=== PATIENT | male | born 1970 | race Caucasian/White ===

== ENCOUNTER 2016-11-30 15:07 | Emergency (ER) | payer OTHER ==
[2016-11-30] MEDS ORDERED: NITROGLYCERIN OINT 1 INCH/GM PACKET TOPICAL STA (15:58)
[2016-11-30] MEDS ORDERED: ASPIRIN 81 MG CHEW PO STA (15:58)
--- NOTE | 2016-11-30 16:18 | XR ---
EXAMINATION TYPE: XR chest 2V DATE OF EXAM: 11/30/2016 COMPARISON: NONE HISTORY: Chest pain and tightness. TECHNIQUE: Frontal and lateral views of the chest are obtained. FINDINGS: There is no focal air space opacity, pleural effusion, or pneumothorax seen. The cardiac silhouette size is within normal limits. The osseous structures are intact. IMPRESSION: No acute cardiopulmonary process.
[2016-11-30 16:22] LABS: Basophils # (A) 0.1 k/uL (0-0.2); Basophils % (A) 1 %; CH 32.8; CHCM 33.5; Eosinophils # (A) 0.3 k/uL (0-0.7); Eosinophils % (A) 3 %; HDW 2.21; HGB 17.6 gm/dL (13.0-17.5); Luc # (Auto) 0.17; Luc % (Auto) 2; Lymphocytes # (A) 1.8 k/uL (1.0-4.8); Lymphocytes % (A) 20 %; MCH 32.6 pg (25.0-35.0); MCHC 33.2 g/dL (31.0-37.0); MCV 98.2 fL (80.0-100.0); Mean Platelet Volume 8.2; Monocytes # (A) 0.8 k/uL (0-1.0); Monocytes % (A) 9 %; Neutrophils # (A) 5.9 k/uL (1.3-7.7); Neutrophils % (A) 66 %; RDW 12.8 % (11.5-15.5); WBC (Perox) 8.51
[2016-11-30 16:26] LABS: INR 1.1 (<1.1); Partial Thromboplastin Time 25.2 sec (22.0-30.0); Prothrombin Time 10.9 sec (9.0-12.0)
[2016-11-30 16:27] LABS: ALT 32 U/L (21-72); AST 13 U/L (17-59); Alkaline Phosphatase 57 U/L (38-126); Anion Gap 7 mmol/L; Blood Urea Nitrogen 22 mg/dL (9-20); Calcium 9.1 mg/dL (8.4-10.2); Carbon Dioxide 26 mmol/L (22-30); Chloride 106 mmol/L (98-107); Glucose 86 mg/dL (74-99); Non-African American GFR(MDRD) >60 (>60 ml/min/1.73 sqM); Potassium 4.2 mmol/L (3.5-5.1); Sodium 139 mmol/L (137-145); Total Bilirubin 0.9 mg/dL (0.2-1.3); Total Protein 6.8 g/dL (6.3-8.2)
[2016-11-30 16:38] LABS: Creatine Kinase 156 U/L (55-170)
[2016-11-30 16:50] LABS: Troponin I <0.012 ng/mL (0.000-0.034)
--- NOTE | 2016-11-30 17:00 | ED ---
Chest Pain HPI - General Chief Complaint: Chest Pain Stated Complaint: chest tightness Time Seen by Provider: 11/30/16 15:52 Source: patient Mode of arrival: ambulatory Limitations: no limitations - History of Present Illness Initial Comments: This 46-year-old white male presents with a complaint of some left-sided chest pain which he describes as a tightness. It seems to radiate posteriorly at times. He states that he walked up 76 flights of steps on Tuesday, 3 days ago. He then did it again yesterday. The symptoms seemed to start shortly after doing this exertional activity. He states that he has gradually been increasing his workout and walking up the [employer]. He actually walked out of the flights of steps twice. He denies any shortness of breath, palpitations, or diaphoresis. He denies any known previous cardiac symptoms. He has had chest pain at times over the years and has been checked out and his last stress test was approximately 2 years ago and was negative. He denies any leg pain or swelling. He denies any history of DVT or PE. No other complaints or modifying factors. - Related Data Home Medications Medication Instructions Recorded Confirmed Atorvastatin Calcium [Lipitor] 10 mg PO DAILY 11/30/16 11/30/16 Cholecalciferol [Vitamin D3] 1,000 unit PO DAILY 11/30/16 11/30/16 Enalapril [Vasotec] 20 mg PO DAILY 11/30/16 11/30/16 Fluticasone Nasal [place] [Flonase 1 spr EA NOSTRIL DAILY 11/30/16 11/30/16 Nasal [place]] Tamsulosin HCl [Flomax] 0.4 mg PO DAILY 11/30/16 11/30/16 Allergies Allergy/AdvReac Type Severity Reaction Status Date / Time No Known Allergies Allergy Verified 11/30/16 16:04 Review of Systems ROS Statement: Those systems with pertinent positive or pertinent negative responses have been documented in the HPI. ROS Other: All systems not noted in ROS Statement are negative. Past Medical History Past Medical History: Hyperlipidemia, Hypertension History of Any Multi-Drug Resistant Organisms: None Reported Past Surgical History: Appendectomy Past Psychological History: No Psychological Hx Reported Smoking Status: Never smoker Past Alcohol Use History: Rare Past Drug Use History: None Reported General Exam - General Exam Comments Initial Comments: GENERAL: The patient is well nourished and well hydrated. VITAL SIGNS: Heart rate, blood pressure, respiratory rate reviewed as recorded in nurse's notes. EYES: Pupils are round and reactive. Extraocular movements are intact. No conjunctival / lid redness or swelling. ENT: No external evidence of injury, swelling, or ecchymosis. Airway is patent. Throat is clear. NECK: Nontender. No swelling or evidence of injury. No subcutaneous emphysema. Trachea is midline. No thyroid mass. HEART: Regular rate and rhythm. Good peripheral pulses. LUNGS/CHEST: Breath sounds clear and equal bilaterally. No rales, rhonchi, or wheezes. No ecchymosis, subcutaneous emphysema, or tenderness. ABDOMEN: Abdomen soft without tenderness. No palpable masses or organomegaly. No peritoneal signs. No abdominal wall swelling or ecchymosis. EXTREMITIES: No extremity tenderness. Normal muscle tone and function. No thoracolumbar tenderness. NEUROLOGIC: Sensation is grossly intact. Cranial nerve exam reveals face is symmetrical, tongue is midline, speech is clear. SKIN: No abrasions or ecchymosis is noted. No induration or masses noted. PSYCHIATRIC: Alert and oriented. Appropriate behavior and judgment. Limitations: no limitations Course Vital Signs 11/30/16 15:22 Temperature 97.8 F Pulse Rate 90 Respiratory 20 Rate Blood Pressure 159/92 O2 Sat by Pulse 99 Oximetry Chest Pain [facility] The patient was seen and examined. All diagnostics were reviewed. An IV is started and he receives aspirin as well as Nitropaste. The EKG shows a normal sinus rhythm at a rate of 95. There is no acute ST-T wave changes identified. The RI interval is 156, QRS duration is 78, and QTc interval is 427. The chest x-ray did not show any acute processes. The laboratory was all essentially within normal limits/unremarkable. He is feeling well on recheck. It is felt that he would benefit from admission to the hospital for further treatment. The patient adamantly refuses admission. Risks and benefits were discussed and ultimately detail and this does include the possibility of or debility. 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 He is instructed to take an aspirin daily and to avoid any strenuous activity or exercise until cleared by his tank assembler. He understands and leaves in no distress. Disposition Clinical Impression: Chest pain, Left against medical advice Disposition: Left Against Medical Advice Condition: Fair Instructions: Chest Pain (ED), Against Medical Advice (ED) Additional Instructions: Please take an aspirin daily. Referrals: Jing Rocha MD [Primary Care Provider] - 1-2 days Morgan Rutherford MD [STAFF PHYSICIAN] - 1-2 days Time of Disposition: 17:06
[2016-11-30 17:12] VITALS: BP 124/63; PULSE 93; RESP 18; TEMP 98.5
== END 2016-11-30 17:12 | disposition left against medical advice (07) ==
LOC: EC 15:07
DX: R07.89 Other chest pain (principal); E78.5 Hyperlipidemia, unspecified; I10 Essential (primary) hypertension; Z79.899 Other long term (current) drug therapy
CPT/HCPCS: 36415; 71020; 80053; 82550; 82553; 83735; 84484; 85025; 85610; 85730; 93005; 99285